=== PATIENT | female | born 1985 | race Two or more races ===

== ENCOUNTER 2023-12-03 16:36 | Emergency (ER) | payer OTHER, SELFPAY ==
[2023-12-03 16:40] VITALS: BP 137/91
--- NOTE | 2023-12-03 17:31 | ED.GENMED ---
History of Present Illness
General
Chief Complaint: Musculo-Skeletal Complaint
Source: patient
Exam Limitations: none
Time Seen by Provider: 12/03/23 17:12
Nursing documentation reviewed up to this point in time: agreed with
Travel History
Have you had any contact with someone who has COVID-19?: No
Do you have any symptoms of coronavirus? Fever > 100 degrees, chills, cough, shortness of breath, sore throat, loss of taste or smell, muscle aches, or headache?: No
History of Present Illness
History of Present Illness:
pt is a 38 y/o F with h/o elevated BMI scheduled to have gastric bypass next week
started notixcing pain anterior and posterior L knee x 3 days, feels like it shoots up into her thigh and down to her calf slightly. pain is worse with walking/weight beraing
she doesn't have difficulty moving it, has not appreciated any swelling
denies cp, sob
no h/o blood clot
has not tried anything for pain
no OCPs, no recent travel or surgery
pt wants to be sure this is not a blood clot since she is due to have surgery next week
no numbness/tingling/weakness in the foot
no pain from the back.
Past History
Past History
ED Past Medical History: None
ED Past Surgical History: None
Social History
Tobacco: Non-smoker
Alcohol: None
Drug: None
Personal:
Living: with family
Review of Systems
Review of Systems
Allergies reviewed?: Yes
All Other Systems: Not applicable
Phy Exam
Physical Exam
Physical Exam:
GENERAL: Alert , in no apparent distress, comfortable at rest
HEAD: NCAT
CV: 2+ DP PULSES B/L
NEUROLOGICAL: Alert and oriented, no focal neuro deficits, , 5/5 strength, sensation intact, ambulation slight limp right leg
SKIN: Warm and dry, no appreciated skin changes to LLE
MUSCULOSKELETAL: Left knee no appreciated swelling
nontender to palpation
no appreicated effusion
full rom
no joint laxity
neg homans sign
PSYCH: Normal and appropriate interaction.
Course
Orders/Labs/Results
Orders:
Orders
12/03/23 17:25
CR Knee - Left 4 Or More View* Urgent
Comment:
Reason For Exam: left knee pain x 3 days no injury
Venous Doppler Lwr Ext Left [US Periph Venous LOWER Ext LT] Urgent
Comment:
Reason For Exam: left leg pain, eval dvt/bakers cyst
Vital Signs
Initial and Last Documented VS:
Initial Vital Signs
Temp Pulse Resp BP Pulse Ox
98.0 F 102 20 137/91 99
12/03/23 16:40 12/03/23 16:40 12/03/23 16:40 12/03/23 16:40 12/03/23 16:40
Last Documented Vital Signs
Temp Pulse Resp BP Pulse Ox
98.0 F 86 19 118/70 99
12/03/23 16:40 12/03/23 19:59 12/03/23 19:59 12/03/23 19:59 12/03/23 19:59
MDM/Problems Addressed
Differential Diagnosis Includes:
knee sprain, dvt, knee pain
MDM/Problems Addressed:
38 y/o F
elevated BMI due to have gastric bypass next week
atraumatic L knee pain that is in anterior/posterior an dradiates up and down leg
no numbness/tingling/weakness
pain worse with walking but she has it with omvemetn of the knee as well and the pain is within gthe knee and not distal lower extremity
no color change to foot
no calf swelling
no redness/warmth to the knee
pt was worried about blood clot
pt has goo dROM
no concernign findings on exam
she has no pain radiating from her back
xray indep reviewed by me, suggest small suprapatellar effusion but no bony abnormalities
dvt study neg
recommend tylenol (has to avoid nsaids preop_)
and deyvi wrap
ortho
*Critical Care Note
Total Time (30-74mins, 75-104mins- exclusive of procedures): Not Applicable
ED Attending Note
-
Portions of this chart may have been created with voice recognition software.� Occasional wrong word or��sound alike� substitutions may have occurred due to the inherent limitations of voice recognition software.
Discharge Plan
Departure
Patient Disposition: Home (Routine Discharge)
Date of Disposition: 12/03/23
Time of Disposition: 19:52
Patient with high blood pressure during this ER visit?: No
Condition: Fair
Covid-19: Not Applicable
Discharge Problem:
Acute knee pain
Instructions: Knee Pain (DC)
Referrals:
NONE,* [Family Provider] -
Activity Restrictions/Additional Instructions:
YOUR XRAY AND ULTRASOUND DO NOT SHOW ANY CAUSE FOR CONCERN
BUT YOU DO NOT HAV EA BLOOD CLOT
YOU HAVE SLIGHT FLUID IN YOUR KNEE -
YOU CAN WEAR AN DEYVI WRAP OR USE A SLEEVE TO HELP WITH PAIN
TYLENOL NEEDED FOR PAIN
RETURN FOR ANY CONCERNS.
Interventions
Interventions:
*Risk Screen - Suicide Last Done: 12/03/23 16:40
*General Assessment Last Done: 12/03/23 16:40
*Neglect/Abuse Screening Last Done: 12/03/23 16:40
ED- Fall Risk Assessment Last Done: 12/03/23 17:10
*ED COVID-19 Vaccine History Last Done: 12/03/23 16:40
*Nursing Disposition Last Done: 12/03/23 20:26
ED-Musculoskeletal Assessment Last Done: 12/03/23 17:10
Discharge Date and Time
Discharge Date/Time: 12/03/23 20:27
[2023-12-03 19:59] VITALS: BP 118/70
== END 2023-12-03 20:27 | disposition home or self-care (01) ==
LOC: EMR 16:36
PROVIDERS: EMERGENCY PHYSICIAN Emergency Medicine
DX: M25.562 Pain in left knee (principal)
CPT/HCPCS: 99284; 73564; 93971